=== PATIENT | male | born 1960 | race Caucasian/White ===

== ENCOUNTER 2019-06-06 20:11 | Emergency (ER) | payer OTHER ==
[2019-06-06] MEDS ORDERED: Lidocaine 2% w/ EPI 1:200,000* 20 ML VIAL ONE (22:45)
--- NOTE | 2019-06-06 22:48 | ED ---
Skin Complaint - HPI Summary HPI Summary: This patient is a 58 year old M presenting to ED with a chief complaint of abscess in his L axilla and smaller abscess in R axilla for about a week. Patient takes OxyContin for his back and shoulders. He has not taken any today. He has never gotten these abscesses before. He does not shave his axilla. The patient rates the pain 10/10 in severity. Symptoms aggravated by nothing. Symptoms alleviated by nothing. Patient reports intermittent subjective fever. - History of Current Complaint Chief Complaint: EDRashSkinAbscess Time Seen by Provider: 06/06/19 22:36 Stated Complaint: INFECTION ON ARM PER PT Hx Obtained From: Patient Onset/Duration: Started Weeks Ago - 1 week, Still Present Timing: Constant Onset Severity: Severe Current Severity: Severe Pain Intensity: 10 Pain Scale Used: 0-10 Numeric Skin Location: Other: - R & L axilla Aggravating Symptom(s): Nothing Alleviating Symptom(s): Nothing Associated Signs & Symptoms: Fever - Intermittent PMH/Surg Hx/FS Hx/Imm Hx Previously Healthy: No Respiratory History: Reports: Hx Chronic Obstructive Pulmonary Disease (COPD) GI History: Reports: Other GI Disorders - rectal bleed Sensory History: Denies: Hx Legally Blind, Hx Deafness Opthamlomology History: Denies: Hx Legally Blind EENT History: Denies: Hx Deafness Psychiatric History: Reports: Hx Depression, Hx Substance Abuse - Alcoholism - Surgical History Surgery Procedure, Year, and Place: Denies Infectious Disease History: No Infectious Disease History: Denies: Traveled Outside the [place] in Last 30 Days - Family History Known Family History: Positive: Other - Alcoholism - Social History Alcohol Use: Occasionally Hx Substance Use: No Substance Use Type: Reports: None Hx Tobacco Use: Yes Smoking Status (MU): Former Smoker Review of Systems Positive: Fever - Intermittent Skin: Other - Abscess in R and L axilla, larger in R All Other Systems Reviewed And Are Negative: Yes Physical Exam - Summary Physical Exam Summary: VITAL SIGNS: Reviewed. GENERAL: Patient is a well-developed and nourished male who is lying comfortable in the stretcher. Patient is not in any acute respiratory distress. HEAD AND FACE: No signs of trauma. No ecchymosis, hematomas or skull depressions. No sinus tenderness. EYES: PERRLA, EOMI x 2, No injected conjunctiva, no nystagmus. EARS: Hearing grossly intact. Ear canals and tympanic membranes are within normal limits. MOUTH: Oropharynx within normal limits. NECK: Supple, trachea is midline, no adenopathy, no JVD, no carotid bruit, no c- spine tenderness, neck with full ROM CHEST: Symmetric, no tenderness at palpation LUNGS: Clear to auscultation bilaterally. No wheezing or crackles. CVS: Regular rate and rhythm, S1 and S2 present, no murmurs or gallops appreciated. ABDOMEN: Soft, non-tender. No signs of distention. No rebound no guarding, and no masses palpated. Bowel sounds are normal. EXTREMITIES: FROM in all major joints, no edema, no cyanosis or clubbing. NEURO: Alert and oriented x 3. No acute neurological deficits. Speech is normal and follows commands. SKIN: : 3x4cm fluctuant tender red swollen abscess over R axilla. 1x1cm tender swelling abscess over L axilla Triage Information Reviewed: Yes Vital Signs On Initial Exam: Initial Vitals Temp Pulse Resp BP Pulse Ox 99.3 F 96 16 120/77 96 06/06/19 20:19 06/06/19 20:19 06/06/19 20:19 06/06/19 20:19 06/06/19 20:19 Vital Signs Reviewed: Yes Diagnostics - Vital Signs Vital Signs Temp Pulse Resp BP Pulse Ox 06/06/19 20:19 99.3 F 96 16 120/77 96 - Laboratory Lab Statement: Any lab studies that have been ordered have been reviewed, and results considered in the medical decision making process. Course/Dx - Course Course Of Treatment: This patient is a 58 year old M presenting to ED with a chief complaint of abscess in his L axilla and smaller abscess in R axilla for about a week. Patient eloped. - Diagnoses Provider Diagnoses: Abscess Discharge - Sign-Out/Discharge Documenting (check all that apply): Patient Departure - Eloped Patient Received Moderate/Deep Sedation with Procedure: No - Discharge Plan Condition: Fair Disposition: ELOPEMENT Referrals: Reed Escobar MD [Primary Care Provider] - - Attestation Statements Document Initiated by Scribe: Yes Documenting Scribe: Damian Hilton Provider For Whom Scribe is Documenting (Include Credential): Ebonie Diane MD Scribe Attestation: I, Damian Hilton, scribed for Ebonie Diane MD on 06/06/19 at 2259. Status of Scribe Document: Ready
[2019-06-06 23:03] VITALS: BP 0/0
== END 2019-06-06 23:02 | disposition left against medical advice (07) ==
LOC: ED 20:11
DX: L02.412 Cutaneous abscess of left axilla (principal); L02.411 Cutaneous abscess of right axilla; R50.9 Fever, unspecified; J44.9 Chronic obstructive pulmonary disease, unspecified; Z87.891 Personal history of nicotine dependence
CPT/HCPCS: 99282

== ENCOUNTER 2019-07-28 21:41 | Emergency (ER) | payer OTHER ==
[2019-07-28] MEDS ORDERED: NS 0.9% 1000 ML** 2,000 ML IV ONE (21:55)
--- NOTE | 2019-07-28 22:01 | ED ---
Substance Abuse/Use - HPI Summary HPI Summary: Pt is a 58 y/o M presenting to the ED brought in by EMS for alcohol intoxication. LEVEL 5 CAVEAT: Pts full hx and physical is unobtainable d/t intoxication. Per EMS, the pt is a recovering alcoholic who relapsed today, drinking alcohol and taking Trazadone. He denies pain. - History Of Current Complaint Chief Complaint: EDGeneral Stated Complaint: SICK PER EMS Time Seen by Provider: 07/28/19 21:52 Hx Obtained From: Patient Onset/Duration of Drug/ETOH Abuse: Hours Overdose Characteristics: Oral Timing Of Abuse: Binge Use Severity Initially: Moderate Severity Currently: Moderate Character: Stuporous Related Hx: Prior Drug Abuse Counseling/Admission - Allergies/Home Medications Allergies/Adverse Reactions: Allergies Allergy/AdvReac Type Severity Reaction Status Date / Time Sulfa (Sulfonamide Allergy Unknown Verified 07/28/19 21:50 Antibiotics) Reaction Details Home Medications: Home Medications Ipratropium HFA INHALER(NF) [Atrovent Hfa Inhaler(NF)] 2 puff INH QID PRN [History Confirmed 07/28/19] Sertraline* [Zoloft*] 200 mg PO DAILY 07/28/19 [History Confirmed 07/28/19] traZODone TAB* [Desyrel TAB*] 150 mg PO BID 07/28/19 [History Confirmed 07/28/19 ] PMH/Surg Hx/FS Hx/Imm Hx Previously Healthy: Yes Respiratory History: Reports: Hx Chronic Obstructive Pulmonary Disease (COPD) GI History: Reports: Other GI Disorders - rectal bleed Sensory History: Denies: Hx Legally Blind, Hx Deafness Opthamlomology History: Denies: Hx Legally Blind Psychiatric History: Reports: Hx Depression, Hx Substance Abuse - Alcoholism - Surgical History Surgery Procedure, Year, and Place: Denies Infectious Disease History: No Infectious Disease History: Denies: Traveled Outside the [place] in Last 30 Days - Family History Known Family History: Positive: Other - Alcoholism - Social History Alcohol Use: Occasionally Hx Substance Use: No Substance Use Type: Reports: None Hx Tobacco Use: Yes Smoking Status (MU): Former Smoker Review of Systems - ROS Summary Review of Systems Summary: LEVEL 5 CAVEAT: Pts full hx and physical is unobtainable d/t intoxication. Negative: Myalgia All Other Systems Reviewed And Are Negative: No Physical Exam - Summary Physical Exam Summary: LEVEL 5 CAVEAT: Pts full hx and physical is unobtainable d/t intoxication. Appearance: Pt asleep, lying in bed comfortably Skin: Warm, dry, no obvious rash Eyes: sclera anicteric, no conjunctival pallor ENT: mucous membranes moist, pharynx appears normal Neck: Supple, nontender Respiratory: Clear to auscultation, no signs of respiratory distress Cardiovascular: Normal S1, S2. No murmurs. Normal distal pulses in tibial and radial bilaterally. Abdomen: deferred Musculoskeletal: Strength/ROM Intact Neurological: Arouses to voice, his speech is slurred, he answers questions but not entirely appropriately. Triage Information Reviewed: Yes Vital Signs On Initial Exam: Initial Vitals Temp Pulse Resp BP Pulse Ox 97.5 F 96 18 136/77 96 07/28/19 21:45 07/28/19 21:45 07/28/19 21:45 07/28/19 21:45 07/28/19 21:45 Vital Signs Reviewed: Yes Diagnostics - Vital Signs Vital Signs Temp Pulse Resp BP Pulse Ox 07/28/19 21:45 97.5 F 96 18 136/77 96 - Laboratory Result Diagrams: 07/28/19 22:14 07/28/19 22:14 Lab Statement: Any lab studies that have been ordered have been reviewed, and results considered in the medical decision making process. - EKG 2217 Cardiac Rate: Tachycardia - 111bpm EKG Rhythm: Sinus Tachycardia ST Segment: Normal Ectopy: None Summary of EKG Findings: EKG at 2217 shows sinus tachycardia at 111bpm with nml axis, nml intervals, and no STEMI. 0021 Cardiac Rate: Tachycardia - 133bpm EKG Rhythm: Sinus Tachycardia ST Segment: Normal Ectopy: None Summary of EKG Findings: EKG at 0021 shows sinus tachycardia at 133bpm with nml axis, nml intervals, and no STEMI. Course/Dx - Course Course Of Treatment: Pt is a 58 y/o M presenting to the ED brought in by EMS for alcohol intoxication. LEVEL 5 CAVEAT: Pts full hx and physical is unobtainable d/t intoxication. Per EMS, the pt is a recovering alcoholic who relapsed today, drinking alcohol and taking Trazadone. He denies pain. Pt is stable on exam. His speech is slurred and he is rousable to voice, answering questions but not entirely appropriately. EKG at 2217 shows sinus tachycardia at 111bpm with nml axis, nml intervals, and no STEMI. EKG at 0021 shows sinus tachycardia at 133bpm with nml axis, nml intervals, and no STEMI. Pt will be signed out to Dr. Monzon pending sobriety. - Diagnoses Provider Diagnoses: Stress and adjustment reaction, Alcohol intoxication Discharge ED - Sign-Out/Discharge Documenting (check all that apply): Sign-Out Patient Signing out patient TO: Jorge A Monzon Patient Received Moderate/Deep Sedation with Procedure: No - Discharge Plan Condition: Stable Disposition: HOME Referrals: Reed Escobar MD [Primary Care Provider] - - Billing Disposition and Condition Condition: STABLE Disposition: Home - Attestation Statements Document Initiated by Jax: Yes Documenting Scribe: Radha Najera Provider For Whom Jax is Documenting (Include Credential): Sergio Hernandez MD. Scribe Attestation: Radha Cole scribed for Sergio Hernandez MD. on 07/31/19 at 0439. Scribe Documentation Reviewed: Yes Provider Attestation: The documentation as recorded by the saudibeRadha accurately reflects the service I personally performed and the decisions made by Sergio cueto MD. Status of Scribe Document: Viewed
[2019-07-28 22:21] LABS: ABS Eosinophils 0.1 10^3/ul (0-0.6); ABS Lymphocytes 1.9 10^3/ul (1.0-4.8); ABS Monocytes 0.8 10^3/ul (0-0.8); Eosinophil % 0.8 %; Hematocrit 47 % (42-52); Hemoglobin 15.9 g/dL (14.0-18.0); Lymphocyte % 24.8 %; Mean Corpuscular HGB Conc 34 g/dL (31-36); Mean Corpuscular Hemoglobin 30 pg (27-31); Mean Corpuscular Volume 90 fL (80-94); Nucleated Red Blood Cells % 0.1; Platelet Count 189 10^3/uL (150-450); Red Blood Count 5.25 10^6 /uL (4.18-5.48); Red Cell Distribution Width 14 % (10-15); White Blood Count 7.8 10^3/uL (3.5-10.8)
[2019-07-28 22:48] LABS: Albumin 3.7 g/dL (3.2-5.2); Anion Gap 15 mmol/L (2-11); CO2 Carbon Dioxide 23 mmol/L (22-32); Calcium 8.3 mg/dL (8.6-10.3); Chloride 99 mmol/L (101-111); Potassium 3.6 mmol/L (3.5-5.0); Sodium 137 mmol/L (135-145)
[2019-07-28 22:54] LABS: ALT 12 U/L (7-52); AST 27 U/L (13-39); Albumin/Globulin Ratio 1.5 (1-3); Alkaline Phosphatase 151 U/L (34-104); BUN/Creatinine Ratio 10.5 (8-20); Blood Urea Nitrogen 6 mg/dL (6-24); EGFR African American 177.7 (>60); EGFR Non-African American 146.8 (>60); Globulin 2.5 g/dL (2-4); Glucose 107 mg/dL (70-100); Total Protein 6.2 g/dL (6.4-8.9)
[2019-07-28 23:05] LABS: Acetaminophen < 15 mcg/mL
[2019-07-28 23:10] LABS: Alcohol 422 mg/dL (<10)
[2019-07-29 03:11] LABS: Urine Appearance Clear; Urine Bilirubin Negative (Negative); Urine Blood Negative (Negative); Urine Color Straw; Urine Glucose Negative (Negative); Urine Ketones Negative (Negative); Urine Nitrite Negative (Negative); Urine Protein Negative (Negative); Urine Specific Gravity 1.002 (1.010-1.030); Urine Urobilinogen Negative (Negative)
[2019-07-29 03:27] LABS: Urine Benzodiazepine Screen None Detected (None Detect); Urine Opiates Screen None Detected (None Detect)
--- NOTE | 2019-07-29 07:17 | ED ---
Progress - Progress Note Progress Note: Patient is received as a sign out from Dr. Hernandez to Dr. Monzon at 0700 07/29/19 shift change pending sobriety and disposition of this alcohol intoxicated patient. 0756 - Patient is alert and oriented x3 at this time. Patient states that he has some "pain in my lungs" as he lost his inhaler. Patient denies shaking at present. He reports that he has not had his zoloft and trazadone in a couple of days as he lost them. Patient claims that he was in "a bad situation" a couple of days ago, which results in him going on an alcohol binge. He reports that he is a recovering alcoholic of several years. He is followed at [facility] by Shalonda Perea. Patient claims that he has "not eaten nothing in about a month" . He denies SI/HI but states that he wants to get admitted to a psych jc. 0804 - Patient was medically cleared for [facility]. 1052 - worker Chris reports that the patient's case has been reviewed by Dr. Levi, patient will be discharged to home and follow up with [facility] and [facility]. Patient's rn field case manager to come berry picker machine operator the patient. Course/Dx - Course Course Of Treatment: Patient is received as a sign out from Dr. Hernandez to Dr. Monzon at 0700 07/29/19 shift change pending sobriety and disposition of this alcohol intoxicated patient. 0756 - Patient is alert and oriented x3 at this time. Patient states that he has some "pain in my lungs" as he lost his inhaler. Patient denies shaking at present. He reports that he has not had his zoloft and trazadone in a couple of days as he lost them. Patient claims that he was in "a bad situation" a couple of days ago, which results in him going on an alcohol binge. He reports that he is a recovering alcoholic of several years. He is followed at [facility] by Shalonda Perea. Patient claims that he has "not eaten nothing in about a month". He denies SI/HI but states that he wants to get admitted to a psych jc. 0804 - Patient was medically cleared for [facility]. 1052 - worker Chris reports that the patient's case has been reviewed by Dr. Levi, patient will be discharged to home and follow up with [facility] and [facility]. Patient's rn field case manager to come berry picker machine operator the patient. - Diagnoses Provider Diagnoses: Stress and adjustment reaction - Provider Notifications Discussed Care Of Patient With: Ramon Levi Time Discussed With Above Provider: 10:52 Instructed by Provider To: Other - 1052 - worker Chris reports that the patient's case has been reviewed by Dr. Levi, patient will be discharged to home and follow up with [facility] and [facility]. Patient's rn field case manager to come berry picker machine operator the patient. Discharge ED - Sign-Out/Discharge Documenting (check all that apply): Patient Departure - discharge Patient Received Moderate/Deep Sedation with Procedure: No - Discharge Plan Condition: Stable Disposition: HOME Referrals: Reed Escobar MD [Primary Care Provider] - - Attestation Statements Document Initiated by Scribe: Yes Documenting Scribe: OLEKSANDR MARK Provider For Whom Scribe is Documenting (Include Credential): RASHAAD MONZON MD Scribe Attestation: IOLEKSANDR, scribed for RASHAAD MONZON MD on 07/29/19 at 1105. Status of Scribe Document: Ready
[2019-07-29] MEDS ORDERED: LORazepam TAB(*) 1 MG PO ONE (08:03)
[2019-07-29 11:04] VITALS: BP 98/73
== END 2019-07-29 11:53 | disposition home or self-care (01) ==
LOC: ED 21:41
DX: F10.929 Alcohol use, unspecified with intoxication, unspecified (principal); F43.20 Adjustment disorder, unspecified; J44.9 Chronic obstructive pulmonary disease, unspecified; Z87.891 Personal history of nicotine dependence; Z79.899 Other long term (current) drug therapy; Z88.2 Allergy status to sulfonamides
CPT/HCPCS: 36415; 80053; 80307; 80320; 80329; 81003; 83605; 84484; 85025; 93005; 99284; A9270-GY; G0480

== ENCOUNTER 2019-09-02 14:31 | Emergency (ER) | payer OTHER ==
--- NOTE | 2019-09-02 15:06 | ED ---
Complex/Multi-Sys Presentation - HPI Summary HPI Summary: The patient is a 59 y/o M arriving by ambulance to [facility] accompanied by occasional caregiver with a chief complaint of malaise with decreased oral intake for the last two weeks. He reports that he last ate a small amount of cheese today, but he hasnt been eating much recently. He has been experiencing nausea, vomiting, and diarrhea. He denies any fever or cough. Currently, his symptoms are rated 0/10 in severity. It is noted that he uses methamphetamine last used yesterday. He also last had a drink about an hour ago, and he frequently has withdrawal from alcohol with seizures. PMHx: COPD, eating disorder, depression, rotator cuff injury, chronic back pain. Former smoker, daily EtOH, no substance use. Medications reviewed. Allergies noted. - History Of Current Complaint Chief Complaint: EDWeakness Time Seen by Provider: 09/02/19 14:54 Hx Obtained From: Patient, Other: - occasional caregiver Onset/Duration: Gradual Onset, Lasting Weeks - two, Still Present Timing: Weeks Severity Currently: Moderate Severity Initially: Mild Aggravating Factor(s): decreased oral intake Alleviating Factor(s): nothing Associated Signs And Symptoms: Positive: Nausea, Vomiting, Diarrhea, Decreased Oral Intake, Other - malaise. Negative: Cough, Fever - Allergies/Home Medications Allergies/Adverse Reactions: Allergies Allergy/AdvReac Type Severity Reaction Status Date / Time Sulfa (Sulfonamide Allergy Unknown Verified 07/28/19 21:50 Antibiotics) Reaction Details Home Medications: Home Medications Oxycodone HCl 10 mg PO QID 09/02/19 [History Confirmed 09/02/19] PMH/Surg Hx/FS Hx/Imm Hx Endocrine/Hematology History: Denies: Hx Diabetes Cardiovascular History: Denies: Hx Hypercholesterolemia, Hx Hypertension Respiratory History: Reports: Hx Chronic Obstructive Pulmonary Disease (COPD) GI History: Reports: Other GI Disorders - rectal bleed Musculoskeletal History: Reports: Hx Back Problems, Other Musculoskeletal History - rotator cuff injury Sensory History: Denies: Hx Legally Blind, Hx Deafness Opthamlomology History: Denies: Hx Legally Blind Psychiatric History: Reports: Hx Eating Disorder, Hx Depression, Hx Substance Abuse - Alcoholism Denies: Hx of Violent Episodes Against Others - Surgical History Surgical History: None Surgery Procedure, Year, and Place: Denies Infectious Disease History: No Infectious Disease History: Denies: Traveled Outside the [place] in Last 30 Days - Family History Known Family History: Positive: Other - Alcoholism - Social History Alcohol Use: Daily Hx Substance Use: Yes Substance Use Type: Reports: Other - methamphetamine Hx Tobacco Use: Yes Smoking Status (MU): Former Smoker Review of Systems Positive: Other - malaise. Negative: Fever Negative: Cough Positive: Vomiting, Diarrhea, Nausea, Other - decreased oral intake All Other Systems Reviewed And Are Negative: Yes Physical Exam - Summary Physical Exam Summary: VITAL SIGNS: Reviewed. GENERAL: Patient is a weak, thin male who is lying comfortable in the stretcher. Patient is not in any acute respiratory distress. HEAD AND FACE: No signs of trauma. No ecchymosis, hematomas or skull depressions. No sinus tenderness. EYES: PERRLA, EOMI x 2, No injected conjunctiva, no nystagmus. EARS: Hearing grossly intact. Ear canals and tympanic membranes are within normal limits. MOUTH: Dry oral mucosa. Oropharynx is otherwise within normal limits. NECK: Supple, trachea is midline, no adenopathy, no JVD, no carotid bruit, no c- spine tenderness, neck with full ROM. CHEST: Symmetric, no tenderness at palpation. LUNGS: Clear to auscultation bilaterally. No wheezing or crackles. CVS: Regular rate and rhythm, S1 and S2 present, no murmurs or gallops appreciated. ABDOMEN: Soft, non-tender. No signs of distention. No rebound, no guarding, and no masses palpated. Bowel sounds are normal. EXTREMITIES: FROM in all major joints, no edema, no cyanosis or clubbing. NEURO: Alert and oriented x 3. No acute neurological deficits. Speech is normal and follows commands. SKIN: Increased turgor of the skin. Dry and warm. Triage Information Reviewed: Yes Vital Signs On Initial Exam: Initial Vitals Temp Pulse Resp BP Pulse Ox 97.6 F 107 20 120/80 97 09/02/19 14:37 09/02/19 14:37 09/02/19 14:37 09/02/19 14:37 09/02/19 14:37 Vital Signs Reviewed: Yes Procedures - Sedation Patient Received Moderate/Deep Sedation with Procedure: No Diagnostics - Vital Signs Vital Signs Temp Pulse Resp BP Pulse Ox 09/02/19 14:37 97.6 F 107 20 120/80 97 - Laboratory Result Diagrams: 09/02/19 15:33 09/02/19 15:33 Lab Statement: Any lab studies that have been ordered have been reviewed, and results considered in the medical decision making process. - Radiology Chest X-Ray Radiology Interpretation Completed By: Radiologist Summary of Radiographic Findings: Impression: Hyperinflated lung scott with no definite pneumonia. ED physician has reviewed this report. - EKG 1529 Cardiac Rate: NL - 98 bpm EKG Rhythm: Sinus Rhythm EKG Comparison: No Significant Change - Similar to previous on 07/29/19. Summary of EKG Findings: EKG at 1529 reveals NSR at 98 bpm. Normal axis. No ST elevations. ED physician has reviewed and interpreted this EKG. Re-Evaluation - Re-Evaluation First Eval Re-Evaluation Time: 19:00 Change: Unchanged Comment: Patient is able to ambualte. His cognition is normal. He is sober at this time. We discussed all results and plan for discharge home. Complex Multi-Symp Course/Dx Assessment/Plan: Patient is a 59 y/o M with chief complaint of malaise likely secondary to decreased appetite over the past two weeks with associated symptoms including nausea, vomiting, and diarrhea. He notes daily alcohol use ( last an hour ago) and occasional methamphetamine use (last yesterday). Blood work without any significant abnormality except for chloride of 99, glucose of 111, lactic acid of 3, magnesium of 1.8, alkaline phosphatase of 110, CRP of 14.92, and alcohol level of 229. Urinalysis is negative for UTI, urine toxicology is negative. In the ED course, the patient was given magnesium by mouth. Patient was also given IV fluids and banana bag since the patient has a history of chronic alcoholism. At approximately 1900, the patient is alert and oriented 3, the patient is sober, he is abmulating without any difficulty. The patient has a history of chronic alcoholism; therefore, at this level the patient is sober. The patient requested to be discharged home; therefore, the patient will be discharged home with follow-up with PCP. Patient is eating and drinking without any nausea or vomiting. The patient has normal cognition. Chest x-ray impression: Hyperinflated lungs scott with no definite pneumonia. EKG is a normal sinus rhythm without any ST elevations. I discussed all the findings and test results with the patient. Patient was instructed to return to the emergency room immediately if any of the symptoms return worsens. Plan of care was discussed with the patient and understands and agrees. All questions were answered at patient satisfaction. There were no further complaints or concerns. Lung exam before discharge: CTA B/L. Good air exchange. No wheezing or crackles heard. CVS: S1 and S2 present. No murmurs appreciated. Patient is alert and oriented x 3. Patient is hemodynamically stable. Patient will be discharged home with follow up PCP in the next 2-3 days. - Diagnoses Provider Diagnoses: Alcohol intoxication Discharge ED - Sign-Out/Discharge Documenting (check all that apply): Patient Departure - Patient will be discharged home. - Discharge Plan Condition: Stable Disposition: HOME Patient Education Materials: Alcohol Intoxication (ED) Referrals: Reed Escobar MD [Primary Care Provider] - 3 Days Additional Instructions: Follow up with your primary care provider in 2-3 days. Return to the emergency department for any new or worsening symptoms. - Billing Disposition and Condition Condition: STABLE Disposition: Home - Attestation Statements Document Initiated by Jax: Yes Documenting Scribe: Alina Mace Provider For Whom Jax is Documenting (Include Credential): Dr. Herb Renteria MD Scribe Attestation: Alina Cole scribed for Dr. Herb Renteria MD on 09/02/19 at 1839. Scribe Documentation Reviewed: Yes Provider Attestation: The documentation as recorded by the Alina irene accurately reflects the service I personally performed and the decisions made by me, Dr. Herb Renteria MD Status of Scribe Document: Ready
[2019-09-02 15:54] LABS: ABS Lymphocytes 1.7 10^3/ul (1.0-4.8); ABS Monocytes 0.6 10^3/ul (0-0.8); ABS Neutrophils 2.9 10^3/ul (1.5-7.7); Eosinophil % 0.7 %; Hematocrit 43 % (42-52); Hemoglobin 14.4 g/dL (14.0-18.0); Lymphocyte % 31.7 %; Mean Corpuscular HGB Conc 34 g/dL (31-36); Mean Corpuscular Hemoglobin 32 pg (27-31); Mean Corpuscular Volume 95 fL (80-94); Mean Platelet Volume 8.2 fL (7.4-10.4); Nucleated Red Blood Cells % 0.1; Platelet Count 253 10^3/uL (150-450); Red Blood Count 4.52 10^6 /uL (4.18-5.48); Red Cell Distribution Width 19 % (10-15); White Blood Count 5.3 10^3/uL (3.5-10.8)
[2019-09-02 16:06] LABS: Albumin 3.7 g/dL (3.2-5.2); Albumin/Globulin Ratio 1.3 (1-3); BUN/Creatinine Ratio 15.6 (8-20); C Reactive Protein 14.92 mg/L (<8.01); Calcium 8.8 mg/dL (8.6-10.3); EGFR African American 154.9 (>60); Globulin 2.9 g/dL (2-4); Magnesium 1.8 mg/dL (1.9-2.7); Potassium 3.8 mmol/L (3.5-5.0); Total Bilirubin 0.7 mg/dL (0.2-1.0); Total Protein 6.6 g/dL (6.4-8.9)
[2019-09-02 16:07] LABS: Activated Partial Thrombo Time 30.1 seconds (26.0-38.0); INR 0.88 (0.82-1.09)
[2019-09-02 16:21] LABS: TSH (Thyroid Stimulating Horm) 2.21 mcIU/mL (0.34-5.60)
[2019-09-02] MEDS ORDERED: Thiamine IV 100 MG, Folic Acid IV* 1 MG, Multiple Vitamin IV ADULT* 10 ML in NS 0.9% 10... IV ONE (16:31)
[2019-09-02 17:13] LABS: Urine Benzodiazepine Screen None Detected (None Detect); Urine Opiates Screen None Detected (None Detect)
[2019-09-02 17:18] LABS: Urine Appearance Clear; Urine Bilirubin Negative (Negative); Urine Blood Negative (Negative); Urine Color Colorless; Urine Glucose Negative (Negative); Urine Ketones Negative (Negative); Urine Nitrite Negative (Negative); Urine Protein Negative (Negative); Urine Specific Gravity 1.002 (1.010-1.030); Urine Urobilinogen Negative (Negative)
[2019-09-02 18:40] VITALS: BP 142/84
== END 2019-09-02 18:39 | disposition home or self-care (01) ==
LOC: ED 14:31
DX: F10.129 Alcohol abuse with intoxication, unspecified (principal); R11.2 Nausea with vomiting, unspecified; R19.7 Diarrhea, unspecified; Z87.891 Personal history of nicotine dependence; Z88.2 Allergy status to sulfonamides
CPT/HCPCS: 36415; 71046; 80053; 80307; 80320; 81003; 82550; 83605; 83735; 83880; 84443; 84484; 85025; 85610; 85730; 86140; 93005; 99283; G0480; J3411